=== PATIENT | female | born 1970 | race Caucasian/White ===

== ENCOUNTER → 2017-11-11 | Outpatient (CLI) | payer OTHER ==
--- NOTE | 2017-11-11 08:41 | DIAGNOSTIC IMAGING REPORT ---
CT SCAN OF THE PARANASAL SINUSES CLINICAL HISTORY: Chronic congestion. COMPARISON STUDY: No priors. TECHNIQUE: High-resolution CT scan of the paranasal sinuses is performed. Images are reviewed in the axial, sagittal, and coronal planes. IV contrast was not administered for this examination. The examination is performed using the fusion protocol. A dose lowering technique was utilized adhering to the principles of ALARA. CT DOSE: 825.38 mGycm FINDINGS: Maxillary antra: There is moderate mucosal thickening seen bilaterally. A small air-fluid level is noted on the left. Anterior ethmoid sinuses: Mild mucosal thickening is seen bilaterally, left slightly greater than right. Posterior ethmoid sinuses: Mild to moderate mucosal thickening is seen on the left. Mild mucosal thickening seen in the right with frothy secretions. Sphenoid sinuses: Moderate mucosal thickening is seen bilaterally, left greater than right. Frontal sinuses: Trace mucosal thickening seen on the right. Clear on the left. Ostiomeatal complexes: The left ostiomeatal complex appears occluded. The right osteochondral complex appears patent with narrowing secondary to mucosal thickening. Small Adan cells are noted bilaterally. Frontoethmoidal and sphenoethmoidal recesses: The right ethmoid recess is patent noting mild narrowing secondary to mucosal thickening. The left sphenoethmoidal recess is occluded. The frontoethmoidal recesses appear clear. Carotid arteries: The carotid arteries are protuberant but covered. A septal attachment is seen on the left. Ethmoid roofs: The ethmoid roofs are symmetric. Nasal turbinates: Normal in appearance. Nasal septum: There is mild leftward deviation of the bony nasal septum with a large spur. Optic nerves: Covered. Orbits: The bony orbits are intact. Orbital contents are normal in appearance. Calvarium: The imaged calvarium is normal in appearance Mastoid air cells: There is a large left mastoid effusion. The right mastoid air cells are clear. Brain parenchyma: Partially visualized brain parenchyma is within normal limits. IMPRESSION: Pansinusitis as above. Electronically signed by: Fernando Mccauley M.D. 11/11/2017 8:40 AM Dictated Date/Time: 11/11/2017 8:33 AM
== END | disposition home or self-care (01) ==
LOC: C.CTS 07:58
PROVIDERS: ATTEND Physician Assistant
DX: R09.81 Nasal congestion (principal); J01.40 Acute pansinusitis, unspecified